=== PATIENT | male | born 1955 | race Caucasian/White ===

== ENCOUNTER 2023-12-19 05:53 | Outpatient (RCR) | payer OTHER, SELFPAY | END 2023-12-19 23:59 | disposition home or self-care (01) | LOC: RST 05:53 | PROVIDERS: ATTENDING PHYSICIAN Otolaryngology | DX: R49.0 Dysphonia (principal) | CPT/HCPCS: 92524 ==

== ENCOUNTER → 2023-12-30 09:41 | Outpatient (REF) | payer OTHER, SELFPAY | LOC: RST 09:41 | PROVIDERS: ATTENDING PHYSICIAN Otolaryngology; FAMILY PHYSICIAN Family Medicine | DX: R13.14 Dysphagia, pharyngoesophageal phase (principal) | CPT/HCPCS: 74230; 92611 ==

== ENCOUNTER 2023-12-31 15:23 | Outpatient (RCR) | payer OTHER, SELFPAY | END 2023-12-31 23:59 | disposition home or self-care (01) | LOC: RST 15:23 | PROVIDERS: ATTENDING PHYSICIAN Otolaryngology | DX: R49.0 Dysphonia (principal); R13.19 Other dysphagia | CPT/HCPCS: 92507 ==